=== PATIENT | male | born 1950 | race Caucasian/White ===

== ENCOUNTER 2020-12-15 19:14 | Observation (INO) | payer MEDICARE ==
[2020-12-15] MEDS ORDERED: Ondansetron PF 4 MG/2 ML Vial ONE (19:38)
[2020-12-15 19:51] LABS: #Lymphocytes 0.6 thou/uL (1.20-3.40); #Monocytes 0.3 thou/uL (0.11-0.59); #Neutrophils 3.2 thou/uL (1.40-6.50); %Basophils 0.1 % (0.0-1.0); %Eosinophils 0.2 % (0.0-10.0); %Lymphocytes 14.5 % (21.0-51.0); %Monocytes 7.3 % (0.0-10.0); %Neutrophils 77.9 % (42.0-75.0); Hemoglobin 16.4 g/dL (14.0-18.0); Mean Corpuscular HGB CONC 34.8 g/dL (32.0-36.0); Mean Corpuscular Hemoglobin 31.8 pg (27.0-31.0); Mean Corpuscular Volume 91.4 fL (78.0-98.0); Mean Platelet Volume 7.8 fL (7.4-10.4); Platelet Count 87 thou/uL (130-400); RBC Distribution Width 11.3 % (11.5-14.5); Red Blood Cell (RBC) Count 5.16 mill/uL (4.70-6.10); White Blood Cell (WBC) Count 4.1 thou/uL (4.8-10.8)
[2020-12-15 20:05] LABS: ALT (SGPT) 16 U/L (8-55); AST (SGOT) 24 U/L (5-34); Albumin 3.7 g/dL (3.4-4.8); Alkaline Phosphatase 60 U/L (40-110); Anion Gap 15 mmol/L (10-20); BUN (Urea Nitrogen) 20 mg/dL (8.4-25.7); Bilirubin, Total 0.6 mg/dL (0.2-1.2); Calc. Creatinine Clearance 0 mL/min (70-130); Calcium 9.1 mg/dL (7.8-10.44); Carbon Dioxide 24 mmol/L (23-31); Chloride 104 mmol/L (98-107); Globulin 2.3 g/dL (2.4-3.5); Glucose 101 mg/dL (80-115); Sodium 139 mmol/L (136-145)
[2020-12-15 20:13] LABS: Platelet Morphology Comment Appears Decreased
[2020-12-15 21:36] VITALS: BMI 27.3
[2020-12-15] MEDS: Dextrose 5 %-0.45 % NaCl 1,000 ML IV SCH (23:27)
[2020-12-15] MEDS ORDERED: Acetaminophen 325 MG TAB PO PRN (23:30)
[2020-12-15] MEDS ORDERED: Ondansetron PF 4 MG/2 ML Vial IVP PRN (23:30)
[2020-12-15] MEDS ORDERED: Ondansetron ODT 4 MG TAB SL PRN (23:30)
[2020-12-16] MEDS: Dextrose 5 %-0.45 % NaCl 1,000 ML IV SCH (05:49)
[2020-12-16] MEDS ORDERED: Levothyroxine Sodium 100 MCG TAB PO SCH ×2 (06:00→06:45)
[2020-12-16] MEDS ORDERED: Dextrose 5 %-0.45 % NaCl 1,000 ML IV SCH (06:38)
[2020-12-16] MEDS ORDERED: Enoxaparin Sodium 40 MG/0.4 ML SYRINGE SC SCH (09:00)
[2020-12-16] MEDS ORDERED: FLU VACC QS2021-22(65YR UP)/PF 240 MCG/0.7 ML SYRINGE IM ONE (09:00)
[2020-12-16 16:48] VITALS: BP 110/60; TEMP 97.8
[2020-12-17] MEDS ORDERED: Levothyroxine Sodium 100 MCG TAB PO SCH (06:00)
== END 2020-12-16 16:10 | disposition home or self-care (01) ==
LOC: BURERS 19:14 → BURMED 20:40
PROVIDERS: ADMIT Family Medicine; ATTEND Family Medicine
DX: U07.1 COVID-19 (principal); E86.0 Dehydration; E03.9 Hypothyroidism, unspecified; Z79.899 Other long term (current) drug therapy
CPT/HCPCS: 71045; 80053; 83880; 84484; 85025; 93005; 94640; 94760; 96372; 96374; G0378; J1650; J2405; J7042; J7620

== ENCOUNTER 2022-02-21 10:47 | Emergency (ER) | payer MEDICARE ==
[2022-02-21] MEDS ORDERED: Boostrix 0.5 ML (Tdap) VIAL (>/=7 yrs of age) ONE (10:58)
== END 2022-02-21 11:15 | disposition home or self-care (01) ==
LOC: BURERS 10:47
DX: S61.012A Laceration without foreign body of left thumb without damage to nail, initial encounter (principal); Z23 Encounter for immunization; W27.0XXA Contact with workbench tool, initial encounter
CPT/HCPCS: 12001; 90471; 90715

== ENCOUNTER 2022-11-06 09:34 | Emergency (ER) | payer MEDICARE | END 2022-11-06 09:48 | disposition home or self-care (01) | LOC: BURERS 09:34 | DX: S80.11XA Contusion of right lower leg, initial encounter (principal); S90.01XA Contusion of right ankle, initial encounter; S90.31XA Contusion of right foot, initial encounter; E03.9 Hypothyroidism, unspecified; W55.22XA Struck by cow, initial encounter; Y93.89 Activity, other specified | CPT/HCPCS: 99283 ==